=== PATIENT | male | born 1975 | race Caucasian/White ===

== ENCOUNTER 2018-06-18 10:00 | Emergency (ER) | payer BC, OTHER ==
[~2018-06-18] VITALS: Ht 182.9 cm; Wt 106.6 kg
--- NOTE | 2018-06-18 10:54 | ED Neurological Problem ---
General Chief Complaint: Dizziness/Syncope Stated Complaint: DIZZY, LIGHT HEADED Nursing Triage Note: PT AMUBLATES TO ROOM 6 PT CO OF DIZZINESS, AND LIGHTHEADEDNESS SINCE YESTERDAY, HAS STOPPED TAKING SINGULAR AND BUSPAR SINCE LAST WEEK. Nursing Sepsis Screen: No Definite Risk Source: patient, family Exam Limitations: no limitations History of Present Illness Date Seen by Provider: Jun 18, 2018 Time Seen by Provider: 10:49 Initial Comments This 43-year-old white male presents with a complaint of feeling dizzy and lightheaded that began yesterday. The patient had been working on a vehicle and found that when he had to move after lying on the ground that he was extremely dizzy. The patient felt lightheaded but did not faint. He had no lateralizing or localizing complaints. He denies chest pain or palpitations. The patient has had no fever or chills. He denies headache, stiff neck, or photophobia. The patient has had no vomiting. The patient has had a history of similar episodes of dizziness dating back several years. The patient has been unable to identify the precipitating cause. He is found that lying still in bed improves his symptoms. Significant past medical history includes ADHD, possible bipolar disease, possible depression and anxiety. Allergies and Home Medications Allergies Coded Allergies: No Known Drug Allergies (Unverified , 06/18/18) Patient Home Medication List Home Medication List Reviewed: Yes Review of Systems Review of Systems Constitutional: No chills, No fever Eyes: Denies Blurred Vision, Denies Photophobia Ears, Nose, Mouth, Throat: denies ear pain, denies ear discharge, denies nose discharge, denies epistaxis Respiratory: No cough, No short of breath Cardiovascular: No chest pain Gastrointestinal: No abdominal pain, No nausea, No vomiting Genitourinary: No dysuria, No frequency Musculoskeletal: No back pain Skin: No rash Psychiatric/Neurological: Anxiety, Depressed, Other (bipolar and anger management issues) Endocrine: No Symptoms Reported Hematologic/Lymphatic: No Symptoms Reported Past Fgeqovg-Fnhmqw-Rmbsbb Hx Past Med/Social Hx: Reviewed Nursing Past Med/Soc Hx Patient Social History Alcohol Use: Occasionally Uses Recreational Drug Use: No Smoking Status: Never a Smoker Recent Foreign Travel: No Contact w/Someone Who Travel: No Recent Infectious Disease Expo: No Recent Hopitalizations: No Seasonal Allergies Seasonal Allergies: Yes Past Medical History Surgeries: No Respiratory: No Cardiac: No Neurological: No Genitourinary: No Gastrointestinal: No Musculoskeletal: No Endocrine: No HEENT: No Cancer: No Psychosocial: Yes ADD/ADHD, Anxiety, Depression Integumentary: No Physical Exam Vital Signs Vital Signs - First Documented 06/18/18 10:00 Temp 98.2 Pulse 79 Resp 13 B/P (MAP) 136/92 (107) Pulse Ox 99 Capillary Refill : Less Than 3 Seconds Height, Weight, BMI Height: 6'0" Weight: 235lbs. oz. [phone]; BMI Method:Stated General Appearance: WD/WN, no apparent distress HEENT: TMs normal Neck: normal inspection Respiratory: lungs clear Cardiovascular: regular rate, rhythm Gastrointestinal: normal bowel sounds, non tender, soft Back: normal inspection Extremities: normal range of motion, non-tender, normal inspection Neurologic/Psychiatric: no motor/sensory deficits, alert, normal mood/affect Coordination/Gait: other (lateral gaze nystatin as worse to the patient's left. ) Motor/Sensory: no motor deficit, no sensory deficit Skin: normal color, warm/dry Progress/Results/Core Measures Results/Orders Lab Results Laboratory Tests Test 06/18/18 10:27 Range/Units White Blood Count 6.9 4.3-11.0 10^3/uL Red Blood Count 5.26 4.35-5.85 10^6/uL Hemoglobin 15.9 13.3-17.7 G/DL Hematocrit 46 40-54 % Mean Corpuscular Volume 87 80-99 FL Mean Corpuscular Hemoglobin 30 25-34 PG Mean Corpuscular Hemoglobin Concent 35 32-36 G/DL Red Cell Distribution Width 13.7 10.0-14.5 % Platelet Count 330 130-400 10^3/uL Mean Platelet Volume 10.0 7.4-10.4 FL Neutrophils (%) (Auto) 63 42-75 % Lymphocytes (%) (Auto) 21 12-44 % Monocytes (%) (Auto) 10 0-12 % Eosinophils (%) (Auto) 6 0-10 % Basophils (%) (Auto) 0 0-10 % Neutrophils # (Auto) 4.3 1.8-7.8 X 10^3 Lymphocytes # (Auto) 1.5 1.0-4.0 X 10^3 Monocytes # (Auto) 0.7 0.0-1.0 X 10^3 Eosinophils # (Auto) 0.4 H 0.0-0.3 10^3/uL Basophils # (Auto) 0.0 0.0-0.1 10^3/uL Sodium Level 139 135-145 MMOL/L Potassium Level 4.4 3.6-5.0 MMOL/L Chloride Level 106 98-107 MMOL/L Carbon Dioxide Level 22 21-32 MMOL/L Anion Gap 11 5-14 MMOL/L Blood Urea Nitrogen 12 7-18 MG/DL Creatinine 1.02 0.60-1.30 MG/DL Estimat Glomerular Filtration Rate > 60 BUN/Creatinine Ratio 12 Glucose Level 99 70-105 MG/DL Calcium Level 9.7 8.5-10.1 MG/DL Corrected Calcium 9.4 8.5-10.1 MG/DL Total Bilirubin 1.3 H 0.1-1.0 MG/DL Aspartate Amino Transf (AST/SGOT) 17 5-34 U/L Alanine Aminotransferase (ALT/SGPT) 30 0-55 U/L Alkaline Phosphatase 61 40-136 U/L Troponin I < 0.028 <0.028 NG/ML Total Protein 7.4 6.4-8.2 GM/DL Albumin 4.4 3.2-4.5 GM/DL My Orders Orders - JOSE NOLEN MD Ct Head Wo (06/18/18 10:45) Troponin I (06/18/18 10:45) Comprehensive Metabolic Panel (06/18/18 10:45) Cbc With Automated Diff (06/18/18 10:48) Ekg Tracing (06/18/18 11:07) Vital Signs/I&O 06/18/18 10:00 Temp 98.2 Pulse 79 Resp 13 B/P (MAP) 136/92 (107) Pulse Ox 99 Blood Pressure Mean: 107 Progress Progress Note : Time: 12:14 Progress Note The patient's CAT scan of the head was unremarkable. Patient's laboratory evaluation was similarly benign. I attempted an Pan's maneuver without significant improvement. I discussed the findings with patient and his spouse. He will continue with the Pan maneuvers at home. I gave him Valium 5 mg 1 tablet every 6 hours as needed for dizziness as well as scopolamine patches to be applied every 3 days for dizziness. I asked the patient to follow up with his primary care physician as soon as possible for further evaluation and care. Plan patient return to emergency department he had any further acute problems or needs. Departure Impression Primary Impression: BPPV (benign paroxysmal positional vertigo) Qualified Codes: H81.12 - Benign paroxysmal vertigo, left ear Disposition: 01 HOME, SELF-CARE Condition: Unchanged Departure-Patient Inst. Decision time for Depature: 12:16 Referrals: TRUDY MULLIGAN MD NO,LOCAL PHYSICIAN (PCP) Primary Care Physician Patient Instructions: Vertigo (a Type of Dizziness) Add. Discharge Instructions: Valium and scopolamine. Follow-up with your doctor as soon as possible. Return if any problems or questions. All discharge instructions reviewed with patient and/or family. Voiced understanding. JOSE NOLEN MD Jun 18, 2018 10:54
[2018-06-18 10:55] LABS: BASOPHILS % (AUTO) 0 % (0-10); EOSINOPHILS # (AUTO) 0.4 10^3/uL (0.0-0.3); EOSINOPHILS % (AUTO) 6 % (0-10); HEMATOCRIT 46 % (40-54); HEMOGLOBIN 15.9 G/DL (13.3-17.7); LYMPHOCYTES # (AUTO) 1.5 X 10^3 (1.0-4.0); LYMPHOCYTES % (AUTO) 21 % (12-44); MEAN CORPUSCULAR HEMOGLOBIN 30 PG (25-34); MEAN CORPUSCULAR HGB CONC 35 G/DL (32-36); MEAN CORPUSCULAR VOLUME 87 FL (80-99); MONOCYTES # (AUTO) 0.7 X 10^3 (0.0-1.0); MONOCYTES % (AUTO) 10 % (0-12); NEUTROPHILS # (AUTO) 4.3 X 10^3 (1.8-7.8); NEUTROPHILS % (AUTO) 63 % (42-75); PLATELET COUNT 330 10^3/uL (130-400); RED CELL DISTRIBUTION WIDTH 13.7 % (10.0-14.5); WHITE BLOOD COUNT 6.9 10^3/uL (4.3-11.0)
[2018-06-18 11:09] LABS: BILIRUBIN,TOTAL 1.3 MG/DL (0.1-1.0); BUN/CREATININE RATIO 12; CALCIUM 9.7 MG/DL (8.5-10.1); CARBON DIOXIDE 22 MMOL/L (21-32); CHLORIDE 106 MMOL/L (98-107); CREATININE SERUM 1.02 MG/DL (0.60-1.30); GFR ESTIMATED > 60; GLUCOSE 99 MG/DL (70-105); POTASSIUM 4.4 MMOL/L (3.6-5.0); SODIUM 139 MMOL/L (135-145)
[2018-06-18 11:10] LABS: ALANINE AMINOTRANSFERASE 30 U/L (0-55); ALBUMIN 4.4 GM/DL (3.2-4.5); ALKALINE PHOSPHATASE 61 U/L (40-136); TOTAL PROTEIN 7.4 GM/DL (6.4-8.2)
--- NOTE | 2018-06-18 11:33 | Diagnostic Imaging Report ---
PROCEDURE: CT head without contrast. TECHNIQUE: Multiple contiguous axial images were obtained through the brain without the use of intravenous contrast. Auto Exposure Controls were utilized during the CT exam to meet ALARA standards for radiation dose reduction. Indication: New onset dizziness, lightheadedness, and altered mental status starting yesterday. Comparison: None. Discussion: No intracranial hemorrhage, mass, midline shift, or hydrocephalus. The ventricles and sulci are normal size and configuration for age. The visualized orbits, paranasal sinuses, mastoid air cells, and calvarium are unremarkable. Impression: 1. Negative head CT. Dictated by: Dictated on workstation # [id number]
[2018-06-18 12:25] VITALS: BP 136/92
== END 2018-06-18 12:24 | disposition home or self-care (01) ==
LOC: EDUNIT# 10:02 → ER 10:04
DX: H81.10 Benign paroxysmal vertigo, unspecified ear (principal); F98.8 Other specified behavioral and emotional disorders with onset usually occurring in childhood and adolescence; F41.9 Anxiety disorder, unspecified; F32.9 Major depressive disorder, single episode, unspecified; F90.9 Attention-deficit hyperactivity disorder, unspecified type
CPT/HCPCS: 36415; 70450; 80053; 84484; 85025; 93005

== ENCOUNTER → 2019-10-08 | Outpatient (REF) ==
--- NOTE | 2019-10-08 11:38 | Diagnostic Imaging Report ---
PATIENT HISTORY: EMPLOYMENT SCREENING. TECHNIQUE: Single frontal view of the chest. COMPARISON: 09/29/2011. FINDINGS: The lung volumes are normal. No focal consolidation is seen. No large pleural effusion or pneumothorax is seen. The cardiomediastinal silhouette is normal in size and contour. No acute osseous abnormality is seen. IMPRESSION: No acute pulmonary abnormality seen. Dictated by: Dictated on workstation # [id number]
== END ==
LOC: OCC 11:09
PROVIDERS: ATTEND Nurse Practitioner Family
DX: Z01.89 Encounter for other specified special examinations (principal)
CPT/HCPCS: 71045